=== PATIENT | male | born 1995 | race Caucasian/White ===

== ENCOUNTER 2020-09-10 14:14 | Outpatient (REF) | payer OTHER, SELFPAY | END 2020-09-10 14:15 | disposition home or self-care (01) | LOC: HO.LAB 14:14 | PROVIDERS: Visit Provider Internal Medicine | DX: Z20.828 Contact with and (suspected) exposure to other viral communicable diseases (principal) | CPT/HCPCS: C9803; U0003 ==

== ENCOUNTER 2020-11-22 12:51 | Outpatient (REF) | payer OTHER, SELFPAY | END 2020-11-22 12:52 | disposition home or self-care (01) | LOC: HO.LAB 12:51 | PROVIDERS: Visit Provider Internal Medicine | DX: Z20.822 Contact with and (suspected) exposure to COVID-19 (principal) | CPT/HCPCS: 36415; C9803; U0003; U0005 ==

== ENCOUNTER 2021-01-30 11:28 | Outpatient (REF) | payer OTHER, SELFPAY ==
[2021-01-30 12:03] LABS: COVID-19 Test Negative (Negative)
== END 2021-01-30 11:29 | disposition home or self-care (01) ==
LOC: HO.LAB 11:28
PROVIDERS: Visit Provider Internal Medicine
DX: Z20.822 Contact with and (suspected) exposure to COVID-19 (principal)
CPT/HCPCS: 36415; 87635; C9803

== ENCOUNTER 2021-02-17 10:26 | Outpatient (REF) | payer OTHER, SELFPAY ==
[2021-02-17 10:48] LABS: COVID-19 Test Negative (Negative); IDNOW Serial# 55D5AD1C
== END 2021-02-17 10:27 | disposition home or self-care (01) ==
LOC: HO.LAB 10:26
PROVIDERS: Visit Provider Internal Medicine
DX: Z20.822 Contact with and (suspected) exposure to COVID-19 (principal)
CPT/HCPCS: 36415; 87635; C9803

== ENCOUNTER 2021-02-22 12:51 | Emergency (ER) | payer OTHER, SELFPAY ==
--- NOTE | ~2021-02-22 | XR_ITS ---
EXAMINATION: XR CHEST CLINICAL INFORMATION: Cough. COMPARISON: None TECHNIQUE: 2 views of the chest were obtained. FINDINGS: No significant abnormality is noted involving the heart, lungs, mediastinum, bony thorax or soft tissues. XR/XR chest 2V IMPRESSION: No acute cardiopulmonary process.
[2021-02-22 13:06] VITALS: BP 139/55; PULSE 71; RESP 20; TEMP 36; O2SAT 98; BMI 38.0
--- NOTE | 2021-02-22 14:00 | ED.GENADULT ---
HPI - General Adult General Chief complaint: General Medical Stated complaint: SORE THROAT Time Seen by Provider: 02/22/21 14:00 History of Present Illness HPI narrative: Patient complains of sore throat cough body aches runny nose, mild shortness of breath for 1 week , negative COVID test 1 week ago Related Data Previous Rx's Medication Instructions Recorded guaifenesin [Adult Tussin Chest 200 mg PO Q4H PRN #473 ml 02/22/21 Congestion] ibuprofen 600 mg PO Q6H PRN #20 tab 02/22/21 Allergies Allergy/AdvReac Type Severity Reaction Status Date / Time No Known Allergies Allergy Unverified 06/13/20 16:27 Review of Systems Review of Systems: Positive for sore throat cough body aches Negatives are no fever no chills no dizziness no weakness no headache no neck pain no stiff neck no chest pain no palpitations no abdominal pain no leg swelling no calf pain no rash no numbness weakness or tingling Yes all other systems are reviewed and are negative PMFSH Past Medical History Source: nursing notes reviewed Medical History (Updated 02/23/21 @ 00:00 by Eli Rouse) Seizures Social History Social History Advance Directives: Yes Advance Directives Information Provided: No Advance Directives on File: No Physical Exam Vital Signs: Vital Signs: Last Vital Signs Temp 96.8 F 02/22/21 13:06 Pulse 71 02/22/21 13:06 Resp 20 02/22/21 13:06 BP 139/55 L 02/22/21 13:06 Pulse Ox 98 02/22/21 13:06 Body Mass Index 38.0 General appearance no acute distress, comfortable and cooperative The eyes are not red no discharge The pharynx is clear without redness exudate or swelling, uvula is midline voice is normal there is no drooling The neck is supple without lymphadenopathy The chest is clear to auscultation bilateral Heart no murmur Respiratory no acute distress Abdomen soft nontender Extremities no edema, no calf tenderness or swelling Extremities full range of motion x4 Skin no rash Neuro no gross motor or sensory deficit Course Course Course Narrative: Chest x-ray was negative, well-appearing patient with negative COVID test and normal chest x-ray is discharged Medical Decision Making Lab Data Labs: Lab Results 02/22/21 02/22/21 Range/Units 14:09 14:10 COVID-19 (FLAVIO) Negative (Negative) COVID-19 Clin Com See Note S. pyogenes GrpA ROSEY Negative (Negative) Discharge Plan Discharge Clinical Impression: Acute viral syndrome Patient Disposition: Home, Self-Care Additional Instructions: Chest x-ray was normal, as were strep throat test and COVID test Most likely this is of viral upper respiratory infection and they last usually from 1-2 weeks Return any time for difficulty breathing, any worse or changed condition, any concerns Prescriptions: New ibuprofen 600 mg tablet 600 mg PO Q6H PRN (Reason: fever or pain) Qty: 20 RF: 0 guaifenesin [Adult Tussin Chest Congestion] 100 mg/5 mL liquid 200 mg PO Q4H PRN (Reason: cough) Qty: 473 RF: 0 Stand Alone Forms: Work/School Release Interventions: ED Discharge Assessment Last Done: 02/22/21 14:48 Discharge Date/Time: 02/22/21 14:49
[2021-02-22 14:28] LABS: IDNOW Serial# 9DD0AD1C; Strep A Nucleic Acid Negative (Negative)
[2021-02-22 14:32] LABS: COVID-19 Test Negative (Negative)
== END 2021-02-22 14:49 | disposition home or self-care (01) ==
PROVIDERS: Physician Assistant Medical; Emergency Provider Emergency Medicine Emergency Medical Services
DX: B34.9 Viral infection, unspecified (principal); J02.9 Acute pharyngitis, unspecified; M79.10 Myalgia, unspecified site; Z20.822 Contact with and (suspected) exposure to COVID-19; Z79.899 Other long term (current) drug therapy
CPT/HCPCS: 36415; 71046; 87635; 87651; 99283

== ENCOUNTER 2021-04-20 07:20 | Emergency (ER) | payer OTHER, SELFPAY ==
[2021-04-20 07:25] VITALS: BP 117/58; PULSE 66; RESP 16; TEMP 36.7; O2SAT 97; BMI 38.0
--- NOTE | 2021-04-20 07:54 | ED_ITS ---
HPI - Seizure General Chief Complaint: Seizure Stated Complaint: SEIZURE Time Seen by Provider: 04/20/21 07:54 Source: patient Mode of arrival: ambulatory Limitations: no limitations History of Present Illness HPI Narrative: tonic clonic seizure while sleeping. patient on Keppra for seizures, stop taking Keppra 4 years ago by himself. mahamed wants to be back on his medication. No fecal or urinary incontenence. MD complaint: seizure Onset (ago): hour(s) Description of Episode: tonic-clonic movement -: minutes(s) Witnessed: Yes - by Bystander Seizure History: Yes Place: Home Associated symptoms: denies other symptoms Related Data Previous Rx's Medication Instructions Recorded guaifenesin [Adult Tussin Chest 200 mg PO Q4H PRN #473 ml 02/22/21 Congestion] ibuprofen 600 mg PO Q6H PRN #20 tab 02/22/21 Allergies Allergy/AdvReac Type Severity Reaction Status Date / Time No Known Allergies Allergy Unverified 06/13/20 16:27 Review of Systems Constitutional: Constitutional: Reports no additional constitutional complaints Eyes: Eyes: Reports no additional eye complaints ENT: Denies dizziness Cardiovascular: Cardiovascular: Reports no additional cardiovascular complaints Respiratory: Respiratory: Reports as per HPI Gastrointestinal: Gastrointestinal: Reports no additional gastrointestinal complaints Musculoskeletal: Musculoskeletal: Reports no additional musculoskeletal complaints Integumentary/Breasts: Skin/Breast: Denies rash Neurologic: Reports system reviewed and no additional complaints, except as documented, Denies dizziness and Denies Sensory deficit (Neuro) Psychiatric: Psychiatric: Denies anxiety [facility] Past Medical History Medical History Seizures Social History Social History Advance Directives: Yes Advance Directives Information Provided: No Advance Directives on File: No Physical Exam Vital Signs: Vital Signs: Last Vital Signs Temp 98.0 F 04/20/21 07:25 Pulse 66 04/20/21 07:25 Resp 16 04/20/21 07:25 BP 117/58 L 04/20/21 07:25 Pulse Ox 97 04/20/21 07:25 Body Mass Index 38.0 Const: General: healthy appearing Nutritional Appearance: average body habitus Orientation/consciousness: oriented to person and patient oriented x3 Limitations: no limitations HENMT: Head: Yes normal to inspection Ears: external ears normal General nose exam: Normal external nose present Mouth: Normal oral and palatal mucosa present and oropharynx normal Throat: Yes posterior oropharynx normal Eyes: General: appearance normal, both eyes and all related structures Neck: Other: supple Neck: Yes normal visual inspection Chest: Chest palpation & inspection: normal inspection of the chest Resp: Auscultation: clear to auscultation bilaterally Cardio: Jugular venous distension: no JVD Rate: regular rate Rhythm: regular rhythm Heart sounds: S1 normal heart sound present and S2 normal heart sound present GI: Inspection: Yes normal to inspection Palpation (GI): Soft to palpation, nontender and No hepatosplenomegaly present Auscultation: normal bowel sounds : General: Yes no CVA tenderness Back/Spine/Pelvis: Back: no CVA tenderness Skin: General skin exam: no rashes or lesions noted Neuro: General: oriented to person and patient oriented x3 Cranial nerves: Yes CN's II-XII intact bilaterally Motor exam (neuro): 5/5 motor strength present throughout Sensory Exam: No Sensory deficit (Neuro) Extrem: General: Yes normal to inspection Psych: Appearance: grossly normal Course Reevaluation(s) Reevaluation #1: no further symptoms will dc home on [facility] Time: 09:20 MDM - Seizure Lab Data Result diagrams: 04/20/21 08:18 04/20/21 08:18 Labs: Lab Results 04/20/21 04/20/21 04/20/21 Range/Units 08:18 08:18 08:18 WBC 6.6 (4.8-10.8) X10*3/uL RBC 4.56 L (4.60-5.80) X10*6/uL Hgb 13.9 L (14.0-18.0) g/dl Hct 42.5 (42-52) % MCV 93.2 (80-98) fL MCH 30.5 (27.0-33.0) pg MCHC 32.7 (31.0-36.0) g/dl RDW 12.9 (11.0-16.0) % Plt Count 261 (160-400) X10*3/uL MPV 9.8 (9.4-12.4) fL Immature Gran % (Auto) 0.2 (0.0-0.4) % Neut % (Auto) 48.2 (45-73) % Lymph % (Auto) 39.6 (20-40) % [place] % (Auto) 8.8 (2-11) % Eos % (Auto) 2.9 (0-4) % Baso % (Auto) 0.3 (0-2) % Lymph # (Auto) 2.6 (1.2-4.9) X10*3/uL [place] # (Auto) 0.6 (0.1-1.2) X10*3/uL Eos # (Auto) 0.2 (0.0-0.4) X10*3/uL Baso # (Auto) 0.0 (0.0-0.2) X10*3/uL Abs Immat Gran (auto) 0.01 (0.00-0.03) X10*3/uL Absolute Neuts (auto) 3.2 (2.0-8.3) X10*3/uL Absolute Nucleated RBC 0.000 (0.0-0.012) X10*3/uL Nucleated RBC % (auto) 0.0 (0.0-0.2) /100WBC Sodium 141 (135-145) mmol/L Potassium 4.5 (3.3-5.1) mmol/L Chloride 106 (96-108) mmol/L Carbon Dioxide 30 H (22-29) mmol/L Anion Gap 10 L (12-20) BUN 14 (9-16) mg/dL Creatinine 0.84 (0.5-1.4) mg/dL Estim Creat Clear Calc 171.8 Estimated GFR > 60 Random Glucose 95 (60-115) mg/dL Calcium 9.3 9.2 (8.4-10.2) mg/dL Magnesium 1.8 (1.6-2.6) mg/dL Discharge Plan Discharge Prescriptions: No Action ibuprofen 600 mg tablet 600 mg PO Q6H PRN (Reason: fever or pain) Qty: 20 RF: 0 guaifenesin [Adult Tussin Chest Congestion] 100 mg/5 mL liquid 200 mg PO Q4H PRN (Reason: cough) Qty: 473 RF: 0
[2021-04-20 08:22] LABS: MANUAL DIFF FLAG NO
[2021-04-20 08:23] LABS: Basophils Percent Auto 0.3 % (0-2); Eosinophils Absolute Auto 0.2 X10*3/uL (0.0-0.4); Eosinophils Percent Auto 2.9 % (0-4); Hematocrit 42.5 % (42-52); Hemoglobin 13.9 g/dl (14.0-18.0); Imm Gran Abs Auto 0.01 X10*3/uL (0.00-0.03); Imm Gran Pct Auto 0.2 % (0.0-0.4); Lymphocytes Absolute Auto 2.6 X10*3/uL (1.2-4.9); Lymphocytes Percent Auto 39.6 % (20-40); Mean Corpuscular HGB Conc 32.7 g/dl (31.0-36.0); Mean Corpuscular Hemoglobin 30.5 pg (27.0-33.0); Mean Corpuscular Volume 93.2 fL (80-98); Mean Platelet Volume 9.8 fL (9.4-12.4); Monocytes Absolute Auto 0.6 X10*3/uL (0.1-1.2); Monocytes Percent Auto 8.8 % (2-11); Neutrophils Absolute Auto 3.2 X10*3/uL (2.0-8.3); Neutrophils Percent Auto 48.2 % (45-73); Platelet Count 261 X10*3/uL (160-400); Red Blood Count 4.56 X10*6/uL (4.60-5.80); Red Cell Distribution Width 12.9 % (11.0-16.0); White Blood Count 6.6 X10*3/uL (4.8-10.8)
[2021-04-20] MEDS: levETIRAcetam 1,000 MG TABLET 1000 MG PO (08:37)
[2021-04-20 09:07] LABS: Calcium 9.3 mg/dL (8.4-10.2); Magnesium 1.8 mg/dL (1.6-2.6)
[2021-04-20 09:08] LABS: Anion Gap 10 (12-20); Blood Urea Nitrogen 14 mg/dL (9-16); Calcium 9.2 mg/dL (8.4-10.2); Carbon Dioxide 30 mmol/L (22-29); Chloride 106 mmol/L (96-108); Creatinine Clr Calc Pharmacy 171.8; Estimated Glomerular Filt Rate > 60; Glucose Random 95 mg/dL (60-115); Potassium 4.5 mmol/L (3.3-5.1); Sodium 141 mmol/L (135-145)
== END 2021-04-20 09:45 | disposition home or self-care (01) ==
PROVIDERS: Emergency Provider Emergency Medicine
DX: G40.909 Epilepsy, unspecified, not intractable, without status epilepticus (principal)
CPT/HCPCS: 36415; 80048; 82310; 83735; 85025; 99283

== ENCOUNTER 2021-04-26 02:07 | Emergency (ER) | payer OTHER, SELFPAY ==
[2021-04-26 02:12] VITALS: BP 145/77; PULSE 79; RESP 18; TEMP 35.9; O2SAT 97; BMI 37.3
--- NOTE | 2021-04-26 02:37 | ED.HA ---
HPI - Headache General Chief Complaint: Headache Stated Complaint: vomiting/headache (prone to seizures) Time Seen by Provider: 04/26/21 02:23 Source: patient Mode of arrival: ambulatory History of Present Illness HPI Narrative: 25-year-old male with history of seizures since he was 12 currently on Keppra as well as history of migraines that he has never had received treatment for (mother has migraines). Patient states that last night he started with his typical migraine location that he describes as being at the right temporal/frontal/occipital without aura and denies any photo or auditory sensitivity, but states that the nausea is new for him and that the headache is bad enough that he sought medical evaluation. Although patient states that the headache is similar he says that the intensity and the nausea are new. Otherwise, he denies sore throat, cough, shortness of breath/chest pain, GI or symptoms. Patient states he is received all childhood vaccines. Related Data Previous Rx's Medication Instructions Recorded guaifenesin 100 mg/5 mL oral 200 mg PO Q4H PRN #473 ml 02/22/21 liquid (Adult Tussin Chest Congestion) ibuprofen 600 mg tablet 600 mg PO Q6H PRN #20 tab 02/22/21 levetiracetam 500 mg tablet 500 mg PO BID #30 tab 04/20/21 (Keppra) Allergies Allergy/AdvReac Type Severity Reaction Status Date / Time No Known Allergies Allergy Unverified 06/13/20 16:27 Review of Systems Review of Systems: Pertinent positives and negatives as stated in HPI 10 point review of systems is otherwise negative. PMFSH Past Medical History Source: nursing notes reviewed Medical History Seizures Social History Social History Advance Directives: No Advance Directives Information Provided: No Physical Exam Vital Signs: Vital Signs: Last Vital Signs Temp 98 F 04/26/21 03:39 Pulse 79 04/26/21 02:12 Resp 18 04/26/21 02:12 BP 145/77 H 04/26/21 02:12 Pulse Ox 97 04/26/21 02:12 Body Mass Index 37.3 VITAL SIGNS: Reviewed. GENERAL: Well developed, well nourished, in no acute distress. HEAD: Normocephalic/atraumatic, EYES: PERRLA, EOMI intact without pain, no nystagmus EARS: Ext canals without abnormality, TMs non-bulging and non-erythematous NOSE: Nares patent bilateral OROPHARYNX: no oral lesions noted, posterior pharynx with erythema and noted tonsillar enlargement/erythema NECK: Supple, no adenopathy LUNGS: Normal breath sounds. No adventitious sounds or accessory muscle use. SpO2<97> CARDIOVASCULAR: Regular rate and rhythm without noted murmurs ABDOMEN: Soft, non-tender, non-distended with bowel sounds. SKIN: Inspection of the skin reveals no rashes NEUROLOGIC: Alert and oriented x 4. Strength and sensation to light touch were grossly intact x 4, no pronator drift, no visual/auditory/speech dysfunction, cranial nerves 2-12 grossly intact. Course Course Course Narrative: 25-year-old male with history and clinical presentation consistent with his migraines although addition of nausea is a new symptom and patient is up-to-date on vaccines. Will look for pharyngitis, COVID as well as providing antiemetic and IV fluids and combination analgesics. 0345: On re-evaluation patient states he has had complete resolution of his headache after receiving the combination analgesics and IV fluids and review of all investigations are otherwise negative for acute findings. Patient will be discharged in stable condition with instructions to continue to hydrate well and follow up with his primary care provider. [facility] - Headache Lab Data Result diagrams: 04/26/21 03:00 04/26/21 03:00 Labs: Lab Results 04/26/21 04/26/21 04/26/21 Range/Units 03:00 03:00 03:00 WBC 7.0 (4.8-10.8) X10*3/uL RBC 4.64 (4.60-5.80) X10*6/uL Hgb 14.1 (14.0-18.0) g/dl Hct 42.6 (42-52) % MCV 91.8 (80-98) fL MCH 30.4 (27.0-33.0) pg MCHC 33.1 (31.0-36.0) g/dl RDW 12.9 (11.0-16.0) % Plt Count 255 (160-400) X10*3/uL MPV 9.8 (9.4-12.4) fL Immature Gran % (Auto) 0.3 (0.0-0.4) % Neut % (Auto) 53.5 (45-73) % Lymph % (Auto) 34.1 (20-40) % [place] % (Auto) 9.3 (2-11) % Eos % (Auto) 2.4 (0-4) % Baso % (Auto) 0.4 (0-2) % Lymph # (Auto) 2.4 (1.2-4.9) X10*3/uL [place] # (Auto) 0.7 (0.1-1.2) X10*3/uL Eos # (Auto) 0.2 (0.0-0.4) X10*3/uL Baso # (Auto) 0.0 (0.0-0.2) X10*3/uL Abs Immat Gran (auto) 0.02 (0.00-0.03) X10*3/uL Absolute Neuts (auto) 3.7 (2.0-8.3) X10*3/uL Absolute Nucleated RBC 0.000 (0.0-0.012) X10*3/uL Nucleated RBC % (auto) 0.0 (0.0-0.2) /100WBC Sodium 140 (135-145) mmol/L Potassium 4.3 (3.3-5.1) mmol/L Chloride 103 (96-108) mmol/L Carbon Dioxide 30 H (22-29) mmol/L Anion Gap 11 L (12-20) BUN 14 (9-16) mg/dL Creatinine 0.91 (0.5-1.4) mg/dL Estim Creat Clear Calc 156.8 Estimated GFR > 60 Random Glucose 98 (60-115) mg/dL Calcium 9.1 (8.4-10.2) mg/dL Total Bilirubin 0.9 (0.0-1.0) mg/dL AST 25 (5-37) U/L ALT 39 (0-40) U/L Alkaline Phosphatase 43 (39-117) U/L Total Protein 7.3 (6.5-8.0) g/dL Albumin 4.1 (3.5-5.0) g/dL COVID-19 (FLAVIO) Negative (Negative) COVID-19 Clin Com See Note Monoscreen (Negative) S. pyogenes GrpA ROSEY (Negative) 04/26/21 04/26/21 Range/Units 03:00 03:00 WBC (4.8-10.8) X10*3/uL RBC (4.60-5.80) X10*6/uL Hgb (14.0-18.0) g/dl Hct (42-52) % MCV (80-98) fL MCH (27.0-33.0) pg MCHC (31.0-36.0) g/dl RDW (11.0-16.0) % Plt Count (160-400) X10*3/uL MPV (9.4-12.4) fL Immature Gran % (Auto) (0.0-0.4) % Neut % (Auto) (45-73) % Lymph % (Auto) (20-40) % [place] % (Auto) (2-11) % Eos % (Auto) (0-4) % Baso % (Auto) (0-2) % Lymph # (Auto) (1.2-4.9) X10*3/uL [place] # (Auto) (0.1-1.2) X10*3/uL Eos # (Auto) (0.0-0.4) X10*3/uL Baso # (Auto) (0.0-0.2) X10*3/uL Abs Immat Gran (auto) (0.00-0.03) X10*3/uL Absolute Neuts (auto) (2.0-8.3) X10*3/uL Absolute Nucleated RBC (0.0-0.012) X10*3/uL Nucleated RBC % (auto) (0.0-0.2) /100WBC Sodium (135-145) mmol/L Potassium (3.3-5.1) mmol/L Chloride (96-108) mmol/L Carbon Dioxide (22-29) mmol/L Anion Gap (12-20) BUN (9-16) mg/dL Creatinine (0.5-1.4) mg/dL Estim Creat Clear Calc Estimated GFR Random Glucose (60-115) mg/dL Calcium (8.4-10.2) mg/dL Total Bilirubin (0.0-1.0) mg/dL AST (5-37) U/L ALT (0-40) U/L Alkaline Phosphatase (39-117) U/L Total Protein (6.5-8.0) g/dL Albumin (3.5-5.0) g/dL COVID-19 (FLAVIO) (Negative) COVID-19 Clin Com Monoscreen Negative (Negative) S. pyogenes GrpA ROSEY Negative (Negative) Discharge Plan Discharge Clinical Impression: Migraine Patient Disposition: Home, Self-Care Instructions: Migraine Headache (ED) Additional Instructions: 1. Resume all home medications as prescribed. 2. Stay well hydrated especially with water. 3. Please follow-up with your primary care provider in the next 2-3 days. Return to the ER for acute worsening of symptoms. Prescriptions: No Action ibuprofen 600 mg tablet 600 mg PO Q6H PRN (Reason: fever or pain) Qty: 20 RF: 0 guaifenesin [Adult Tussin Chest Congestion] 100 mg/5 mL liquid 200 mg PO Q4H PRN (Reason: cough) Qty: 473 RF: 0 levetiracetam [Keppra] 500 mg tablet 500 mg PO BID Qty: 30 RF: 0 Referrals: Physician,None [Primary Care Provider] - 2 days
[2021-04-26 03:04] LABS: MANUAL DIFF FLAG NO
[2021-04-26 03:05] LABS: Basophils Percent Auto 0.4 % (0-2); Eosinophils Absolute Auto 0.2 X10*3/uL (0.0-0.4); Eosinophils Percent Auto 2.4 % (0-4); Hematocrit 42.6 % (42-52); Hemoglobin 14.1 g/dl (14.0-18.0); Imm Gran Abs Auto 0.02 X10*3/uL (0.00-0.03); Imm Gran Pct Auto 0.3 % (0.0-0.4); Lymphocytes Absolute Auto 2.4 X10*3/uL (1.2-4.9); Lymphocytes Percent Auto 34.1 % (20-40); Mean Corpuscular HGB Conc 33.1 g/dl (31.0-36.0); Mean Corpuscular Hemoglobin 30.4 pg (27.0-33.0); Mean Corpuscular Volume 91.8 fL (80-98); Mean Platelet Volume 9.8 fL (9.4-12.4); Monocytes Absolute Auto 0.7 X10*3/uL (0.1-1.2); Monocytes Percent Auto 9.3 % (2-11); Neutrophils Absolute Auto 3.7 X10*3/uL (2.0-8.3); Neutrophils Percent Auto 53.5 % (45-73); Platelet Count 255 X10*3/uL (160-400); Red Blood Count 4.64 X10*6/uL (4.60-5.80); Red Cell Distribution Width 12.9 % (11.0-16.0)
[2021-04-26] MEDS: Acetaminophen 325 MG TABLET 975 MG PO (03:05)
[2021-04-26] MEDS: Ketorolac Tromethamine 15 MG/ML VIAL IVPUSH (03:05)
[2021-04-26] MEDS: 0.9 % Sodium Chloride 1,000 ML 999 ML IV (03:05)
[2021-04-26 03:30] LABS: COVID-19 Test Negative (Negative)
[2021-04-26 03:31] LABS: IDNOW Serial# 9DD0AD1C; Strep A Nucleic Acid Negative (Negative)
[2021-04-26 03:39] VITALS: TEMP 36.6
[2021-04-26 03:40] LABS: Alanine Aminotransferase 39 U/L (0-40); Albumin Level 4.1 g/dL (3.5-5.0); Alkaline Phosphatase 43 U/L (39-117); Anion Gap 11 (12-20); Aspartate Amino Transferase 25 U/L (5-37); Bilirubin Total 0.9 mg/dL (0.0-1.0); Blood Urea Nitrogen 14 mg/dL (9-16); Calcium 9.1 mg/dL (8.4-10.2); Carbon Dioxide 30 mmol/L (22-29); Chloride 103 mmol/L (96-108); Creatinine Clr Calc Pharmacy 156.8; Estimated Glomerular Filt Rate > 60; Glucose Random 98 mg/dL (60-115); Potassium 4.3 mmol/L (3.3-5.1); Sodium 140 mmol/L (135-145); Total Protein 7.3 g/dL (6.5-8.0)
[2021-04-26 03:43] LABS: Monotest Negative (Negative)
--- NOTE | 2021-04-26 04:12 | PC.NURSE ---
PT REPORTS FEELING PAIN FREE FOLLOWING MEDICATION ADMINISTRATION. PT HAS NOT EXPERIENCED ANY VOMITING WHILE IN THE ER, AND NO LONGER NAUSEOUS. PT GIVEN SALTINES AND WATER, ABLE TO TOLERATE.
== END 2021-04-26 04:58 | disposition home or self-care (01) ==
PROVIDERS: Emergency Provider Student in an Organized Health Care Education/Training Program
DX: G43.909 Migraine, unspecified, not intractable, without status migrainosus (principal); Z20.822 Contact with and (suspected) exposure to COVID-19; R11.2 Nausea with vomiting, unspecified; Z79.899 Other long term (current) drug therapy
CPT/HCPCS: 36415; 80053; 85025; 86308; 87635; 87651; 96361; 96372; 96374; 96375; 99284; J1885; J2405

== ENCOUNTER 2022-04-22 21:12 | Emergency (ER) | payer SELFPAY ==
[2022-04-22 22:39] VITALS: BP 121/58; PULSE 61; RESP 16; TEMP 36.7; O2SAT 96; BMI 38.7
== END 2022-04-23 01:44 | disposition left against medical advice (07) ==
PROVIDERS: Emergency Provider Emergency Medicine
DX: R22.0 Localized swelling, mass and lump, head (principal); T78.40XA Allergy, unspecified, initial encounter; X58.XXXA Exposure to other specified factors, initial encounter
CPT/HCPCS: 99281

== ENCOUNTER 2025-07-20 14:48 | Outpatient (REF) | payer MEDICAID, SELFPAY ==
--- OUTSIDE RECORDS SUMMARY | 2025-07-20 13:15 | XMS_ITS | Encounter Summary ---
Author Organization [employer] Address [address] [place] [id number] Care Team Providers Care Advertising Display Rotator Name Role Phone Unavailable Primary Care Provider Unavailabl e Reason for Referral * Consultation (Routine) - Authorized Specialty Diagnoses / Procedures Referred By Herminia bassett Referred To Contact Behavioral Health Diagnoses Other depression Procedures Referral to Behavioral Health Barrett Saeed FNP [address] [place] [address] Phone: tel: fax: Referral ID Status Reason Start Date Expiration Date Visits Requested Visits Authorized [id number] Authorized Specialty Services Required 07/20/2026 1 1 * Consultation (Routine) - Pending Review Specialty Diagnoses / Procedures Referred By Herminia bassett Referred To Contact Optometry Diagnoses Healthcare maintenance Barrett Saeed FNP [address] [place] [address] Phone: tel: fax: Referral ID Status Reason Start Date Expiration Date Visits Requested Visits Authorized [id number] Pending Review Specialty Services Required 07/20/2026 1 1 * Consultation (Routine) - Authorized Specialty Diagnoses / Procedures Referred By Herminia bassett Referred To Contact Dental Boiler Setter / Dentistry Diagnoses Healthcare maintenance Barrett Saeed FNP [address] [place] [address] Phone: tel: fax: Referral ID Status Reason Start Date Expiration Date Visits Requested Visits Authorized [id number] Authorized Consult and Treat 07/20/2025 07/20/2026 1 1 * Consultation (Routine) - Pending Review Specialty Diagnoses / Procedures Referred By Contcarol t Referred To Contact Sleep Medicine Diagnoses Obstructive sleep apnea syndrome Barrett Saeed FNP [address] [place] [address] Phone: tel: fax: Referral ID Status Reason Start Date Expiration Date Visits Requested Visits Authorized [id number] Pending Review Specialty Services Required 07/20/2026 1 1 * Consultation (Routine) - Authorized Specialty Diagnoses / Procedures Referred By Herminia bassett Referred To Contact Nutrition Diagnoses Healthcare maintenance Barrett Saeed FNP [address] [place] [address] Phone: tel: fax: Referral ID Status Reason Start Date Expiration Date Visits Requested Visits Authorized [id number] Authorized Consult and Treat 07/20/2025 07/20/2026 1 1 Reason for Visit * Reason Comments New patient Encounter Details Date Type Department Care Team ([facility] st Contact Info) Description 07/20/2025 1:15 PM EDT Office Visit [facility] [address] [place] [phone] Healthcare maintenance (Primary Dx); Dietary counseling; Exercise counseling; Obstructive sleep apnea syndrome; Tm (tympanic membrane disorder), right; Obesity (BMI 35.0-39.9 without comorbidity); Other depression Social History Tobacco Use Types Packs/Day Years Used Date Smoking Tobacco: Never Passive Smoke Exposure: Never Smokeless Tobacco: Never Alcohol Use Standard Drinks/Week Comments Never 0 (1 standard drink = 0.6 oz pur e alcohol) Depression Answer Date Recorded Patient Health Questionnaire-9 Score 6 07/20/2025 Patient Health Questionnaire-9 Score 6 07/20/2025 Last PHQ-9: Questionnaire Data Not on file 1 Housing Stability Answer Date Recorded What is your housing situation today? I have ruth fischer 07/20/[address] you li ve. Do you have problems with any of the following? None of the above 07/20/2025 Food Insecurity Answer Date Recorded Within the past 12 months, y ou worried that your food would run out before you got money to buy more: Never True 07/20/2025 Within the past 12 months,th e food you bought just didn't last and you didn't have enough money to get more: Never True Transportation Answer Date Recorded In the past 12 months, has l ack of transportation kept you from medical appts, meetings, work or from getting things needed for daily living? No 07/13/2025 Utilities Answer Date Recorded In the past 12 months, has t he electric, gas, oil or water company threatened to shut off services in your home? No 07/13/2025 Depression Answer Date Recorded Patient Health Questionnaire-2 Score 2 07/20/2025 Internet Access Answer Date Recorded Internet Access Q1 Yes 07/13/2025 Internet Access Q2 Not on file 07/13/2025 Sex and Gender Information Value Date Recorded Sex Assigned at Male 06/28/2025 9:33 AM EDT Legal Sex Male 12:53 PM EDT Gender Identity Male 06/28/2025 9:33 AM EDT Sexual Orientation Straight 07/20/2025 1: 13 PM EDT documented as of this encounter Last Filed Vital Signs Vital Sign Reading Time Taken Comments Blood Pressure 122/86 07/20/2025 1:23 PM EDT Pulse 101 07/20/2025 1:23 PM EDT Temperature 36.8 C (98.3 F) 07/20/2025 1:23 PM EDT Respiratory Rate 25 07/20/2025 1:23 PM EDT Oxygen Saturation 97% 07/20/2025 1:23 PM EDT Inhaled Oxygen Concentration - - Weight 121 kg (267 lb 6.4 oz) 07/20/2025 1:23 PM EDT Height 175.3 cm (5' 9 ) 07/20/2025 1:23 PM EDT Body Mass Index 39.49 07/20/2025 1:23 PM EDT documented in this encounter Functional Status * Over the past 2 weeks, how often have you been bothered by any of the following problems? Question Answer Date of Assessment Author Patient Health Questionnaire -2 Score 2 07/20/2025 1:29 PM EDT Sima Lott MA * Little interest or pleasure in doing things Answer Date of Assessment Author Several days 07/20/2025 1:29 PM EDT Sima Lott MA * Feeling down, depressed, or hopeless Answer Date of Assessment Author Several days 07/20/2025 1:29 PM EDT Sima Lott MA * Trouble falling or staying asleep, or sleeping too much Answer Date of Assessment Author Not at all 07/20/2025 1:29 PM EDT Sima Lott MA * Feeling tired or having little energy Answer Date of Assessment Author Several days 07/20/2025 1:29 PM EDT Sima Lott MA * Poor appetite or overeating Answer Date of Assessment Author Several days 07/20/2025 1:29 PM EDT Sima Lott MA * Feeling bad about yourself - or that you are a failure or have let yourself or your family down Answer Date of Assessment Author Several days 07/20/2025 1:29 PM EDT Sima Lott MA * Trouble concentrating on things, such as reading the newspaper or watching television Answer Date of Assessment Author Several days 07/20/2025 1:29 PM EDT Sima Lott MA * Moving or speaking so slowly that other people could have noticed? Or the opposite - being so fidgety or restless that you have been moving around a lot more than usual. Answer Date of Assessment Author Not at all 07/20/2025 1:29 PM EDT Sima Lott MA * Thoughts that you would be better off or hurting yourself in some way Answer Date of Assessment Author Not at all 07/20/2025 1:29 PM LETYT Sima Lott MA * Patient Health Questionnaire-9 Score Answer Date of Assessment Author 6 07/20/2025 1:29 PM EDT Sima Lott MA * How difficult have these problems made it for you to do your work, take care of things at home, or get along with other people? Answer Date of Assessment Author Somewhat difficult 07/20/2025 1:29 PM EDT Sima Pink MA * Over the last 2 weeks, how often have you been bothered by any of the following problems? Question Answer Date of Assessment Author Feeling nervous, anxious, or on edge 2 07/20/2025 1:29 PM EDT Sima Lott MA Not being able to stop or co ntrol worrying 1 07/20/2025 1:29 PM EDT Sima Lott MA Worrying too much about diff erent things 1 07/20/2025 1:29 PM EDT Sima Lott MA Trouble relaxing 1 07/20/2025 1:29 PM EDT Sima Boyd MA Being so restless that it is hard to sit still 0 07/20/2025 1:29 PM EDT Sima Lott MA Becoming easily annoyed or irritable 0 07/20/2025 1:29 PM EDT Sima Lott MA Feeling afraid as if somethi ng awful might happen 2 07/20/2025 1:29 PM EDT Sima Lott MA JIM-7 Total Score 7 07/20/2025 1:29 PM LETYT Sima Lott MA documented as of this encounter Plan of Treatment Scheduled Orders Name Type Priority Associated Diagnoses Orde r Schedule TSH W/Reflex to FT4 Lab Routine Obesity (BMI 35.0-39.9 without comorbidity) Expected: 07/20/2025 (Approximate), Expires: 07/20/2026 Hemoglobin A1c Lab Routine Obesity (BMI 35.0-39.9 without comorbidity) Expected: 07/20/2025 (Approximate), Expires: 07/20/2026 Basic Metabolic Panel Lab Routine Healthcare maintenance Expected: 07/20/2025 (Approximate), Expires: 07/20/2026 Chlamydia/N. Gonorrhoeae, PCR, Urine Lab Routine Healthcare maintenance Ordered: 07/20/2025 Hepatitis B Core Antibody, Total Lab Routine Healthcare maintenance Expected: 07/20/2025 (Approximate), Expires: 07/20/2026 Hepatitis B Surface Antibody, Qualitative Lab Routine Healthcare maintenance Expected: 07/20/2025 (Approximate), Expires: 07/20/2026 Hepatitis B surface antigen, EIA Lab Routine Healthcare maintenance Expected: 07/20/2025 (Approximate), Expires: 07/20/2026 Hepatitis C Antibody with Reflex to HCV, RNA, Quantitative, Real-Time PCR Lab Routine Healthcare maintenance Expected: 07/20/2025, Expires: 07/20/2026 HIV-1/2 Antigen and Antibodies, Fourth Generation, with Reflexes Lab Routine Healthcare maintenance Expected: 07/20/2025 (Approximate), Expires: 07/20/2026 Syphilis Screen Lab Routine Healthcare maintenance Expected: 07/20/2025, Expires: 07/20/2026 Scheduled Referrals Name Type Priority Associated Diagnoses Orde r Schedule Referral to Nutrition Therapy Outpatient Referral Routine Healthcare maintenance Expected: 07/20/2025 (Approximate), Expires: 07/20/2026 Referral to Sleep Medicine Outpatient Referral Routine Obstructive sleep apnea syndrome Expected: 07/20/2025 (Approximate), Expires: 07/20/2026 Referral to [facility] Outpatient Referral Routine Healthcare maintenance Expected: 07/20/2025 (Approximate), Expires: 07/20/2026 Referral to Optometry Outpatient Referral Routine Healthcare maintenance Expected: 07/20/2025 (Approximate), Expires: 07/20/2026 documented as of this encounter Visit Diagnoses Diagnosis Healthcare maintenance- Primary Dietary counseling Dietary surveillance and counseling Exercise counseling Obstructive sleep apnea syndrome Obstructive sleep apnea (adult) (pediatric) Tm (tympanic membrane disorder), right Obesity (BMI 35.0-39.9 without comorbidity) Other depression documented in this encounter Additional Health Concerns Assessment Noted Time PHQ-9 Depression Total Score: 6 07/20/20 25 1:29 PM EDT documented as of this encounter
--- OUTSIDE RECORDS SUMMARY | 2025-07-20 16:32 | XMS_ITS | Encounter Summary ---
Author Organization [employer] Address [address] [place] [address] Care Team Providers Care Carriage Operator Name Role Phone Unavailable Primary Care Provider Unavailabl e Encounter Details Date Type Department Care Team (Latest Contact Info) Description 07/20/2025 Travel Social History Tobacco Use Types Packs/Day Years [...] PM EDT documented as of this encounter Functional Status * Over the [...] 1:29 PM EDT Sima Lott MA * Patient Health Questionnaire-9 [...] JIM-7 Total Score 7 07/20/2025 1:29 PM EDT Sima Lott MA documented as of this encounter Plan of Treatment Not on file documented as of this encounter Visit Diagnoses Not on filedocumented in this encounter Additional Health Concerns Assessment Noted Time PHQ-9 Depression Total Score: 6 07/20/20 1:29 PM EDT documented as of this encounter
--- OUTSIDE RECORDS SUMMARY | 2025-07-20 16:32 | XMS_ITS | Clinical Summary ---
Author Organization [employer] [facility] Address [address] [place] [address] Care Team Providers Care Procurement Buyer Name Role Phone Unavailable Primary Care Provider Unavailabl e Social History Tobacco Use Types Packs/Day Years Used Date Smoking Tobacco: Never Assessed Sex and Gender Information Value Date Recorded Sex Assigned at Not on file Legal Sex Male 11:48 PM EST Gender Identity Not on file Sexual Orientation Not on file Plan of Treatment Health Maintenance Due Date Last Done Comments DTaP,Tdap,and Td Vaccines (1 - Tdap) 2012 Hepatitis B Vaccines (1 of 3 - 19+ 3-dose series) 2012 HPV Vaccines (1 - 3-dose SCD M series) 2020 Depression Screening 09/27/2024 COVID-19 Vaccine (1 - 2023-2 5 season) 2025 Influenza Vaccine (#1) 2025 RSV Immunization Adult Patie nts (1 - 1-dose 75+ series) 2068 HIB Vaccines Aged Out No longer eligi ble based on patient's age to complete this topic Hepatitis A Vaccines Aged Out No long er eligible based on patient's age to complete this topic IPV Vaccines Aged Out No longer eligi ble based on patient's age to complete this topic MMR Vaccines Aged Out No longer eligi ble based on patient's age to complete this topic Meningococcal ACWY Vaccine Aged Out N o longer eligible based on patient's age to complete this topic Meningococcal B Vaccine Aged Out No l onger eligible based on patient's age to complete this topic Pneumococcal Vaccine: Pediat rics (0 to 5 Years) and At-Risk Patients (6 to 49 Years) Aged Out No longer eligible b ased on patient's age to complete this topic RSV Immunization Patients Un mary jo 20 months Aged Out No longer eligible b ased on patient's age to complete this topic Varicella Vaccines Aged Out No longer eligible based on patient's age to complete this topic
--- OUTSIDE RECORDS SUMMARY | 2025-07-20 16:32 | XMS_ITS | Clinical Summary ---
Author Organization [employer] Address [address] [place] [address] 7 [place] [address] Care Team Providers Care Shaper Hand Name Role Phone Unavailable Primary Care Provider Unavailabl e Allergies Active Allergy Reactions Criticality Noted Date Comments Cat Dander Itching 07/20/2025 Medications fluticasone (Flonase) 50 MCG/ACT nasal sprayIndication s:Tm (tympanic membrane disorder), right Administer 1-2 sprays into each nostril Once per day. Shake gently. Before first use, prime pump. After use, clean tip and replace cap. 16 g 2 07/20/20 26 Active Active Problems Problem Noted Date Diagnosed Date Seizure disorder (CMS/HCC) 07/20/2025 Attention deficit hyperactivity disorder (ADHD) 07/20/2025 Encounters Date Type Department Care Team Description 07/20/2025 1:15 PM EDT Office Visit [facility] [address] [place] [phone] Healthcare maintenance (Primary Dx); Dietary counseling; Exercise counseling; Obstructive sleep apnea syndrome; Tm (tympanic membrane disorder), right; Obesity (BMI 35.0-39.9 without comorbidity); Other depression 07/20/2025 Travel 07/19/2025 Telephone [facility] [address] [place] [address] [phone] Barrett Saeed FNP CHARTPREP 07/16/2025 Patient Outreach [facility] [address] [place] [address] [phone] Barrett Saeed FNP Care Coordination (CHW outreach for SDOH housing search-referral completed ) 07/13/2025 Patient Outreach [facility] [address] [facility] [place] [address] Barrett Saeed FNP Pre-visit Planning (SDOH positive, Tobacco screening negative. ) 06/28/2025 Telephone [facility] [address] [place] [address] May Daigle MD New Patient appt. from Last 3 Months Social History Tobacco Use Types Packs/Day Years [...] your housing situation today? I have ruth aaliyah 07/20/[address] you li [...] t he electric, gas, oil or water [employer] threatened to shut off services in your [...] Orientation Straight 07/20/2025 1: 13 PM EDT Last Filed Vital Signs Vital Sign Reading [...] Mass Index 39.49 07/20/2025 1:23 PM EDT Plan of Treatment Health Maintenance Due Date Last Done Comments HIV Screening 1995 Lipid Panel 1993 Family Planning (PISQ) 2008 HPV Vaccines (1 - Male 3-dos e series) 2008 Hepatitis C Screening 2011 DTaP/Tdap/Td Vaccines (1 - Tdap) 2012 Hepatitis A Vaccines (1 of 2 - Risk 2-dose series) 2012 Hepatitis B Vaccines (1 of 3 - 19+ 3-dose series) 2012 COVID-19 Vaccine (1 - 2023-2 5 season) 2025 Influenza Vaccine (#1) 2025 Alcohol/Substance Use Screening 07/20/2026 07/20/2025 Depression Screening 07/20/2026 07/20/2025, 07/20/2025 Disability Screening 07/20/2026 07/20/2025 SDOH Screening 07/20/2026 07/20/2025 Tobacco Screening 07/20/2026 07/20/2025 Zoster Vaccines (1 of 2) 2043 RSV Patients and Patients Aged 60 years or older (1 - 1-dose 75+ series) 2068 HIB Vaccines Aged Out No longer eligi ble based on patient's age to complete this topic IPV Vaccines Aged Out No longer eligi ble based on patient's age to complete this topic Meningococcal B Vaccine Aged Out No l onger eligible based on patient's age to complete this topic Meningococcal Vaccine Aged Out No katerina marina eligible based on patient's age to complete this topic Pneumococcal Vaccine: Pediatrics (0 to 5 Years) and At-Risk Patients (6 to 49) Years Aged Out No longer eligible b ased on patient's age to complete this topic RSV under 20 months Aged Out No longe r eligible based on patient's age to complete this topic Rotavirus Vaccines Aged Out No longer eligible based on patient's age to complete this topic Insurance * Guarantor: Chemo Hess Account Type Relation to Patient Date of Phone Billing Address Personal/Family Self [address] [place] [phone] [facility] C3 Member Subscriber Plan / Payer (Ef fective 2025-Present) Name:Chemo Hess Relation to Subscriber:Self Name:Chemo Hess Payer ID:Not on file Group ID:Not on file Type:Medicaid Address: [facility] [address] [place] [address]
--- OUTSIDE RECORDS SUMMARY | 2025-07-20 16:32 | XMS_ITS | Encounter Summary ---
Author Organization [employer] Address [address] [place] [address] 7 [place] [address] Care Team Providers Care Chemical Plant Worker Name Role Phone Unavailable Primary Care Provider Unavailabl e Reason for Visit * Reason Onset Date Comments CHARTPREP 07/19/2025 Encounter Details Date Type Department Care Team ([facility] st Contact Info) Description 07/19/2025 Telephone [facility] [address] [place] [address] Barrett Saeed FNP [address] [place] [address] CHARTPREP Social History Tobacco Use Types Packs/Day Years Used Date Smoking Tobacco: Never Assessed Depression Answer Date Recorded Patient Health Questionnaire-9 [...] PM EDT documented as of this encounter Miscellaneous Notes * Telephone Encounter - Sima Lott MA - 07/19/2025 2:57 PM EDT Chart Prep Labs: not applicable Images: done Referrals: not applicable Vaccines due: Covid, Flu, Tdap, Hep B, and HPV Screenings: HIV screening, alcohol /substance use screening,Hep C screening,family planning Overdue care gaps: SBIRT, PHQ-9, JIM-7, Disability screen, and Tobacco documented in this encounter Plan of Treatment Not on file documented as of this encounter Visit Diagnoses Not on filedocumented in this encounter
--- OUTSIDE RECORDS SUMMARY | 2025-07-20 16:32 | XMS_ITS | Encounter Summary ---
Author Organization [employer] Address [address] [place] [address] [address]t [place] [address] Care Team Providers Care Trap Operator Name Role Phone Unavailable Primary Care Provider Unavailabl e Reason for Visit * Reason Comments Care Coordination CHW outreach for SDO H housing search-referral completed Encounter Details Date Type Department Care Team (Latest Contact Info) Description 07/16/2025 Patient Outreach [facility] [address] [place] [address] Barrett Saeed FNP [address] [place] [address] Care Coordination (CHW outreach for SDOH housing search-referral completed ) Social History Tobacco Use Types Packs/Day Years Used Date Smoking Tobacco: Never Assessed Housing Stability Answer Date Recorded What is your housing situation today? I do not have housing (Staying with others, in a hotel, in a jail, living outside on the street, on a beach, in a car, or in a park 07/13/[address] you li ve. Do you have problems with any of the following? None of the above 07/13/2025 Food Insecurity Answer Date Recorded Within the past 12 months, y ou worried that your food would run out before you got money to buy more: Often true 07/13/2025 Within the past 12 months,th e food you bought just didn't last and you didn't have enough money to get more: Often true Transportation Answer Date Recorded In the past 12 months, has l ack of transportation kept you from medical appts, meetings, work or from getting things needed for daily living? No 07/13/2025 Utilities Answer Date Recorded In the past 12 months, has t he electric, gas, oil or water company threatened to shut off services in your home? No 07/13/2025 Internet Access Answer Date Recorded Internet Access Q1 Yes 07/13/2025 Internet Access Q2 Not on file 07/13/2025 Sex and Gender Information Value Date Recorded Sex Assigned at Male 06/28/2025 9:33 AM EDT Legal Sex Male 12:53 PM EDT Gender Identity Male 06/28/2025 9:33 AM EDT Sexual Orientation Straight 07/20/2025 1: 13 PM EDT documented as of this encounter Progress Notes * Prakash Nava - 07/16/2025 9:36 AM EDT CHW Prakash Nava, placed outbound call to patient for assistance with SDOH as a referral was received by the provider. Patient's name and were confirmed. Patient screened positive for the following SDOH housing insecurities. Patient states is staying with her friend but is searching for her own apartment. CHW referral patient to the list of application mail out to her address on file. Patient verbalizes understanding, and able to agree with plan to follow up herself. Patient educated on extended clinic hours on Mondays through Wednesdays, and Walk-In Urgent Care Located in [facility]. Patient provided with after-hours line for [facility], , which offer night time triage service and option to transfer to content creation manager provider if needed. documented in this encounter Plan of Treatment Not on file documented as of this encounter Visit Diagnoses Not on filedocumented in this encounter
[2025-07-20 18:53] LABS: Anion Gap 11 (12-20); Blood Urea Nitrogen 14 mg/dL (9-16); Calcium 9.0 mg/dL (8.4-10.2); Carbon Dioxide 27 mmol/L (22-29); Chloride 106 mmol/L (96-108); Estimated Glomerular Filt Rate > 60; Potassium 3.9 mmol/L (3.3-5.1); Sodium 140 mmol/L (135-145)
[2025-07-21 03:37] LABS: HBc Num1 0.32 S/CO (0.00-0.79)
[2025-07-21 03:39] LABS: Syphilis Screen Nonreactive (Nonreactive)
[2025-07-21 03:40] LABS: CT PCR Urine NOT DETECTED (Not Detect.); NG PCR Urine NOT DETECTED (Not Detect.)
[2025-07-21 04:01] LABS: HBS Num1 1.61 mIU/mL (0-7.99); HBsAGNum1 0.48 S/CO (0.00-0.99); HIV Num 1 0.08 S/CO (0.00-0.99); Hepatitis B Surface Antigen Negative (Negative); ~HepC Num1 0.10 S/CO (0.00-0.79); ~Hepatitis B Surface Antibody NONREACTIVE (Nonreactive); ~Hepatitis C Antibody Nonreactive (Nonreactive)
== END 2025-07-20 14:49 | disposition home or self-care (01) ==
LOC: HO.HHCL 14:48
DX: Z00.00 Encounter for general adult medical examination without abnormal findings (principal); Z01.84 Encounter for antibody response examination; Z11.59 Encounter for screening for other viral diseases; Z11.4 Encounter for screening for human immunodeficiency virus [HIV]; Z20.2 Contact with and (suspected) exposure to infections with a predominantly sexual mode of transmission; E66.9 Obesity, unspecified
CPT/HCPCS: 36415; 80048; 83036; 84443; 86704; 86706; 86780; 86803; 87340; 87389; 87491; 87591